=== PATIENT | female | born 1970 | race Caucasian/White ===

== ENCOUNTER 2022-02-04 14:10 | Emergency (ER) | payer OTHER ==
[2022-02-04 14:22] VITALS: BP 141/71; PULSE 119; RESP 18; TEMP 97.8
--- NOTE | 2022-02-04 16:15 | ED ---
General Adult HPI - General Chief complaint: Abdominal Pain Stated complaint: lab recheck Time Seen by Provider: 02/04/22 15:01 Source: patient Mode of arrival: ambulatory Limitations: no limitations - History of Present Illness Initial comments: She is a 51 -year-old female presenting with chief complaint of abdominal pain. Patient states she has been having recurrent episodes of abdominal pain for the past month. Patient admits to episodes of nausea, vomiting, diarrhea with eating. She states that she feels like there is a "rock in her stomach" and the pain is located in the epigastric region. Several weeks ago she had a stent in place for nephrolithiasis, which was the cause of an episode of sepsis. She had this performed at [facility], where her PCP operates out of. This morning she received blood work and a CT, her physician advised her to report to the ER for further evaluation and management. She denies chest pain, shortness of breath, fever, chills, headache, numbness, tingling, palpitations, hemoptysis, hematemesis, hematochezia, melena, hematuria, urgency, frequency, dysuria. - Related Data Allergies Allergy/AdvReac Type Severity Reaction Status Date / Time meperidine [From Demerol] Allergy Unknown Verified 02/04/22 14:20 Penicillins Allergy Rash/Hives Verified 02/04/22 14:20 Review of Systems ROS Statement: Those systems with pertinent positive or pertinent negative responses have been documented in the HPI. ROS Other: All systems not noted in ROS Statement are negative. Past Medical History Past Medical History: Diabetes Mellitus History of Any Multi-Drug Resistant Organisms: None Reported Additional Past Surgical History / Comment(s): kidney Past Psychological History: No Psychological Hx Reported Smoking Status: Former smoker Past Alcohol Use History: None Reported Past Drug Use History: None Reported General Exam Limitations: no limitations General appearance: alert, in no apparent distress Head exam: Present: atraumatic, normocephalic, normal inspection Eye exam: Present: normal appearance, PERRL, EOMI. Absent: scleral icterus, conjunctival injection, periorbital swelling ENT exam: Present: normal exam, mucous membranes moist Neck exam: Present: normal inspection Respiratory exam: Present: normal lung sounds bilaterally. Absent: respiratory distress, wheezes, rales, rhonchi, stridor Cardiovascular Exam: Present: regular rate, normal rhythm, normal heart sounds. Absent: systolic murmur, diastolic murmur, rubs, gallop, clicks GI/Abdominal exam: Present: soft, tenderness (Effusively), normal bowel sounds. Absent: distended, guarding, rebound, rigid Neurological exam: Present: alert, oriented X3, CN II-XII intact Psychiatric exam: Present: normal affect, normal mood Skin exam: Present: warm, dry, intact, normal color. Absent: rash Course Vital Signs 02/04/22 14:20 Temperature 97.8 F Pulse Rate 119 H Respiratory 18 Rate Blood Pressure 141/71 O2 Sat by Pulse 98 Oximetry Medical Decision Making - Medical Decision Making Patient is a 51-year-old female presenting with chief complaint of abdominal pain. Pain has been going on for about a month, located in the epigastric region, and feels like a cramping sensation. Patient admits to nausea, vomiting, diarrhea when eating. Patient follows with the PCP of [facility], who today shanita several labs and performed a CT, they advised her to report to the ER for further evaluation. On examination there is diffuse tenderness of the abdomen, normal bowel sounds in all 4 quadrants. I attempted to contact the hospital for computed tomography scan results. Patient provided me with her blood work performed today which showed an elevated platelet count of 645 and elevated white count of 16.6. When I returned to reevaluate the patient, she was expressing that she wanted to go home. I advised the patient against leaving before receiving a full workup. Patient was insistent she wanted to sign out AMA. I went to retrieve the AMA form, when I returned the patient had eloped without signing the AMA document. Disposition Clinical Impression: Abdominal pain Disposition: Left Against Medical Advice Condition: Undetermined Additional Instructions: Patient eloped without signing AMA form. Is patient prescribed a controlled substance at d/c from ED?: No Referrals: Uriel Howell DO [Primary Care Provider] - 1-2 days Time of Disposition: 16:00
== END 2022-02-04 16:12 | disposition left against medical advice (07) ==
LOC: EC 14:10
DX: R10.13 Epigastric pain (principal); E11.9 Type 2 diabetes mellitus without complications; Z88.0 Allergy status to penicillin; Z87.891 Personal history of nicotine dependence
CPT/HCPCS: 99283